=== PATIENT | male | born 1965 | race Caucasian/White ===

== ENCOUNTER 2021-12-18 21:02 | Emergency (ER) | payer BC ==
[~2021-12-18] VITALS: Ht 167.6 cm; Wt 73.5 kg
[2021-12-18 21:20] VITALS: BP 168/95
== END 2021-12-19 00:45 | disposition left against medical advice (07) ==
LOC: MED 21:02
DX: H57.13 Ocular pain, bilateral (principal); Z53.21 Procedure and treatment not carried out due to patient leaving prior to being seen by health care provider